=== PATIENT | male | born 1995 | race Two or more races ===

== ENCOUNTER 2017-03-11 00:14 | Emergency (ER) | payer OTHER ==
--- NOTE | 2017-03-11 00:25 | ED ---
May Jauregui Michael, scribed for Brian Fair MD on 03/11/17 at 0024 . Substance Abuse/Use - HPI Summary HPI Summary: 22 y/o male was BIBA to the ED presenting with alcohol consumption tonight. The pt was found outside when [facility] Police called EMS. The consumed an unknown amount of alcohol and vomited [employer]. He is alert and oriented x1 per EMS. HPI is limited due to Level 5 Caveat-AMS - History Of Current Complaint Chief Complaint: EDSubstanceAbuse Stated Complaint: ALCOHOL CONSUMPTION Hx Obtained From: EMS, Medical Records Hx From Patient Unobtainable Due To: Altered Mental Status Onset/Duration of Drug/ETOH Abuse: Hours Ingestion History: Type/Name Of Drug - alcohol Overdose Characteristics: Oral Severity Initially: Moderate Severity Currently: Moderate Character: Stuporous Aggravating Factor(s): Nothing Alleviating Factor(s): Nothing Associated Signs And Symptoms: Vomiting PMH/Surg Hx/FS Hx/Imm Hx Previously Healthy: Yes - unable to obtain due to AMS - Family History Known Family History: Positive: Unknown Family History: limited due to level 5 caveat - Social History Occupation: Student Alcohol Use: Occasionally Review of Systems - ROS Summary Review of Systems Summary: ROS is limited due to level 5 caveat-AMS Negative: Fever Positive: Vomiting All Other Systems Reviewed And Are Negative: No Physical Exam Triage Information Reviewed: Yes Vital Signs On Initial Exam: Initial Vitals Temp Pulse Resp BP Pulse Ox 96.9 F 68 17 100/49 96 03/11/17 00:17 03/11/17 00:17 03/11/17 00:17 03/11/17 00:17 03/11/17 00:17 Vital Signs Reviewed: Yes Appearance: Positive: Well-Appearing, No Pain Distress Skin: Positive: Warm Head/Face: Positive: Normal Head/Face Inspection Eyes: Positive: [place] ENT: Positive: Hearing grossly normal Neck: Positive: Supple Respiratory/Lung Sounds: Positive: Clear to Auscultation, Breath Sounds Present Cardiovascular: Positive: RRR Abdomen Description: Positive: Nontender, Soft Bowel Sounds: Positive: Present Musculoskeletal: Positive: Strength/ROM Intact Neurological: Positive: Alert, Oriented to Person Place, Time Diagnostics - Vital Signs Vital Signs Temp Pulse Resp BP Pulse Ox 03/11/17 00:17 96.9 F 68 17 100/49 96 - Laboratory Lab Statement: Any lab studies that have been ordered have been reviewed, and results considered in the medical decision making process. Re-Evaluation - Re-Evaluation First Eval Change: Improved Course/Dx - Diagnoses Provider Diagnoses: Alcohol abuse Discharge - Discharge Plan Condition: Stable Disposition: HOME Patient Education Materials: Abuse of Alcohol (ED) Referrals: [facility] QUYEN Bergeron [Primary Care Provider] - Additional Instructions: Please follow up with [facility] within the next 2-3 days. The documentation as recorded by the May mejia Michael accurately reflects the service I personally performed and the decisions made by , Brian Fair MD.
[2017-03-11 06:43] VITALS: BP 96/50
== END 2017-03-11 06:41 | disposition home or self-care (01) ==
LOC: ED 00:14
DX: F10.10 Alcohol abuse, uncomplicated (principal); R11.10 Vomiting, unspecified
CPT/HCPCS: 36415; 80320; 99283; G0480